=== PATIENT | female | born 1960 | race Caucasian/White ===

== ENCOUNTER → 2019-09-16 | Outpatient (CLI) | payer OTHER ==
[~2019-09-16] MED LIST: CIPROFLOXACIN500 M1 PO; NOHOMEMEDICATIONS; ROBAXIN 750 MG750 M1 PO; TRAMADOL 50 MG50 MG PO
== END ==
LOC: M.RAD 15:35
DX: M16.0 Bilateral primary osteoarthritis of hip (principal)

== ENCOUNTER 2020-06-02 20:49 | Emergency (ER) | payer BC ==
[~2020-06-02] VITALS: Ht 162.6 cm; Wt 78.9 kg
[2020-06-02] MEDS ORDERED: BLOOD PRESSURE MED (20:54)
[2020-06-02 21:36] LABS: ABSOLUTE EOSINOPHILS 0.2 thou/uL (0.0-0.7); ABSOLUTE LYMPHOCYTES 2.2 thou/uL (0.8-5.3); ABSOLUTE MONOCYTES 0.6 thou/uL (0.0-1.2); BASOPHILS 0.5 %; EOSINOPHILS 1.9 %; HEMATOCRIT 44.1 % (37.0-47.0); HEMOGLOBIN 15.4 gm/dL (12.0-15.0); LYMPHOCYTES 27.7 %; MCH 33.5 pg (26.0-34.0); MCHC 34.9 g/dL (28.0-37.0); MPV 7.7 fl. (7.2-11.1); NUCLEATED RBCS 0 /100WBC; PLATELET COUNT* 372 thou/uL (150-400); POLYS 62.9 %; RBC 4.59 mil/uL (4.20-5.00)
[2020-06-02 21:39] LABS: CALCIUM 9.1 mg/dL (8.5-10.1); CREATININE 0.5 mg/dL (0.6-1.3); POTASSIUM 4.6 mmol/L (3.5-5.1)
[2020-06-02 21:44] LABS: ALBUMIN 3.3 g/dL (3.4-5.0); TOTAL BILIRUBIN 0.4 mg/dL (<0.1-1.0); TOTAL PROTEIN 7.5 g/dL (6.4-8.2)
[2020-06-02 22:06] VITALS: BP 115/70
== END 2020-06-02 22:07 | disposition home or self-care (01) ==
LOC: M.ERS 20:49
PROVIDERS: Emergency Medicine Emergency Medical Services
DX: M25.552 Pain in left hip (principal); Z90.49 Acquired absence of other specified parts of digestive tract

== ENCOUNTER 2020-10-01 10:23 | Emergency (ER) | payer BC ==
[~2020-10-01] VITALS: Ht 162.6 cm; Wt 83.0 kg
[~2020-10-01 10:23] MED LIST changes: +BLOOD PRESSURE MED
[2020-10-01] MEDS ORDERED: NORCO 5-325 TA1 EAC2 PO (13:11)
[2020-10-01 14:20] VITALS: BP 179/74
== END 2020-10-01 14:20 | disposition home or self-care (01) ==
LOC: M.ERS 10:23
DX: S42.92XA Fracture of left shoulder girdle, part unspecified, initial encounter for closed fracture (principal); S42.215A Unspecified nondisplaced fracture of surgical neck of left humerus, initial encounter for closed fracture; W05.0XXA Fall from non-moving wheelchair, initial encounter; Y93.89 Activity, other specified; Y92.89 Other specified places as the place of occurrence of the external cause; Y99.8 Other external cause status

== ENCOUNTER → 2020-10-09 | Outpatient (CLI) | payer OTHER ==
[~2020-10-09] MED LIST changes: +ALEVE220 MG PO; +NORCO 5-325 TA1 EAC2 PO; +TYLENOL EXTRA500 MG PO
== END ==
LOC: M.LAB 13:59
PROVIDERS: ATTEND Orthopaedic Surgery
DX: Z01.812 Encounter for preprocedural laboratory examination (principal); Z20.828 Contact with and (suspected) exposure to other viral communicable diseases

== ENCOUNTER 2020-10-13 06:56 | Observation (INO) | payer OTHER ==
[~2020-10-13] VITALS: Ht 162.6 cm; Wt 83.0 kg
[~2020-10-13 06:56] MED LIST changes: -TYLENOL EXTRA500 MG PO
[2020-10-13 08:19] LABS: HEMATOCRIT 39.2 % (37.0-47.0); HEMOGLOBIN 13.2 gm/dL (12.0-15.0); MCH 32.7 pg (26.0-34.0); MCHC 33.7 g/dL (28.0-37.0); MPV 6.6 fl. (7.2-11.1); RBC 4.04 mil/uL (4.20-5.00); RDW-CV 15.1 % (10.5-14.5); WBC 10.9 thou/uL (4.0-11.0)
[2020-10-13 08:26] LABS: CALCIUM 9.1 mg/dL (8.5-10.1); CREATININE 0.6 mg/dL (0.6-1.3); POTASSIUM 3.9 mmol/L (3.5-5.1)
[2020-10-13] MEDS ORDERED: TYLENOL EXTRA500 MG PO (08:29)
--- NOTE | 2020-10-13 09:10 | EKG ---
[place] [address] ELECTROCARDIOGRAM REPORT Name: GRACEKADEN Room: [facility]#: [id number] Admission: 10/13/20 Attend Phys: Alberto mEery, Discharge: Date of : 58 Date of Service: 10/13/20 0838 Report #: [id number] THIS REPORT FOR: //name// [facility] Test Date: 2020-10-13 Test Time: 08:38:16 Pat Name: KADEN GRACE Department: Room: Gender: [employer] Engineer: : [id number] Requested By: Alberto Emery Order Number: [id number] Reading MD: Bong Chin Measurements Intervals [place] Rate: 62 P: 65 MN: 203 QRS: 11 QRSD: 106 T: 42 QT: 412 QTc: 419 Interpretive Statements Sinus rhythm Probable left atrial enlargement Low voltage, extremity leads Anteroseptal infarct, old Minimal ST elevation, lateral leads No previous ECG available for comparison Electronically Signed On 10-13-2020 9:09:50 CRTTS by Bong Chin [email or web address] <ELECTRONICALLY SIGNED> By: Britt Chin MD, [facility] 10/13/2009 7 7 Britt Chin MD, MARIEL /EPI
[2020-10-13 14:51] VITALS: BP 142/88
[2020-10-13 20:00] VITALS: BP 158/69
[2020-10-14] VITALS (7 sets, daily range): BP systolic 143–169; BP diastolic 61–74
[2020-10-14 04:29] LABS: CREATININE 0.5 mg/dL (0.6-1.3); POTASSIUM 3.6 mmol/L (3.5-5.1)
[2020-10-14 04:39] LABS: ABSOLUTE BASOPHILS 0.1 thou/uL (0.0-0.2); ABSOLUTE LYMPHOCYTES 2.1 thou/uL (0.8-5.3); ABSOLUTE MONOCYTES 0.9 thou/uL (0.0-1.2); ABSOLUTE NEUTROPHILS 11.4 thou/uL (1.6-8.1); BASOPHILS 0.4 %; EOSINOPHILS 0.3 %; HEMATOCRIT 33.9 % (37.0-47.0); HEMOGLOBIN 11.3 gm/dL (12.0-15.0); LYMPHOCYTES 14.5 %; MCH 32.5 pg (26.0-34.0); MCHC 33.4 g/dL (28.0-37.0); MCV 97.3 fL (80.0-100.0); MONOCYTES 6.3 %; MPV 7.1 fl. (7.2-11.1); NUCLEATED RBCS 0 /100WBC; PLATELET COUNT* 401 thou/uL (150-400); POLYS 78.5 %; RBC 3.49 mil/uL (4.20-5.00); RDW-CV 14.9 % (10.5-14.5); WBC 14.5 thou/uL (4.0-11.0)
--- NOTE | 2020-10-14 10:57 | OP ---
[address] [address] OPERATIVE REPORT Name: KADEN GRACE Room: [address] Nadja#: [id number] Admission: 10/13/20 Attend Phys: Alberto Emery II Discharge: Date of : 58 Report #: [id number] THIS REPORT FOR: //name// cc: Almas Robertson Vincent R. DO ~ CC: Alberto Robertson DATE OF SERVICE: 10/13/2020 PREOPERATIVE DIAGNOSIS: Left proximal humerus fracture with displacement. POSTOPERATIVE DIAGNOSIS: Left proximal humerus fracture with displacement. PROCEDURE: Open reduction and internal fixation of left proximal humerus fracture. SURGEON: Alberto Emery II, DO. CAMPAIGN SPECIALIST: BREANA Baires. ANESTHESIA: Per operative record. ESTIMATED BLOOD LOSS: 200 mL. ANTIBIOTICS: Per operative record. DRAINS: None. COMPLICATIONS: None. CONDITION: The patient is stable to recovery room. DESCRIPTION OF PROCEDURE: The patient was taken to the operative suite and placed supine on the operating table, given appropriate anesthesia. The patient's affected shoulder was sterilely prepped and draped in modified beach chair position and all bony prominences well padded. Surgery began by an anterior incision over the anterior left shoulder and carried down to the subcutaneous tissues. The deltopectoral approach was performed down to the fracture site. The deltoid was retracted and the fracture was manipulated back into near anatomic alignment utilizing a [place] and reduction forceps. This was held in position and checked with C-arm to be in appropriate alignment. The plate was then placed over the lateral aspect of the humerus and checked for appropriate position. This was then pinned into position and sliding hole screw was then applied to the shaft. This was then cinched into place and secured in both proximal and distal directions with [place] [address] OPERATIVE REPORT Name: KADEN GRACE Brianna Room: [address] Nadja#: [id number] Admission: 10/13/20 Attend Phys: Alberto Emery II Discharge: Date of : 58 Report #: [id number]. Final images were taken of both the internal and externally rotated views showing excellent anatomic alignment with excellent reduction of the fracture. Final irrigation was performed. The deltopectoral approach was then closed using #1 Vicryl in running fashion. Skin was closed with 2-0 Vicryl and running Monocryl stitch. Dermabond, sterile dressing and sling were applied. The patient transported to recovery room in stable condition. Counts were correct throughout the procedure. <ELECTRONICALLY SIGNED> By: Alberto Emery II, DO 10/14/20 1057 [id number] [id number] Emery II, DO /nt
[2020-10-14] MEDS ORDERED: PERCOCET PO (12:22)
== END 2020-10-14 14:55 | disposition home health service (06) ==
LOC: M.SUR 06:56 → M.3W 13:36 → M.SUR 16:36 → M.3W 10-14 14:55
PROVIDERS: Orthopaedic Surgery; ADMIT Internal Medicine; ATTEND Internal Medicine
DX: S42.202A Unspecified fracture of upper end of left humerus, initial encounter for closed fracture (principal); L97.529 Non-pressure chronic ulcer of other part of left foot with unspecified severity; R09.02 Hypoxemia; R23.9 Unspecified skin changes; F17.200 Nicotine dependence, unspecified, uncomplicated; W18.30XA Fall on same level, unspecified, initial encounter; Y93.89 Activity, other specified; Y92.89 Other specified places as the place of occurrence of the external cause